=== PATIENT | female | born 1980 | race Two or more races ===

== ENCOUNTER 2025-03-17 09:31 | Emergency (ER) | payer BC ==
[~2025-03-17] VITALS: Ht 160 cm; Wt 90.7 kg
[2025-03-17] MEDS: MECLIZINE HCL 25 MG TABLET PO ONE (10:00)
[2025-03-17 10:07] LABS: PLATELET COUNT (AUTO) 238 K/uL (179-408); RED BLOOD CELL COUNT(AUTO) 4.57 MIL/uL (3.63-4.92); RED CELL DISTRIBUTION WIDTH 16.3 % (12.3-17.7); WHITE BLOOD COUNT (AUTO) 12.2 K/uL (3.8-11.8)
[2025-03-17] MEDS ORDERED: MECLIZINE HCL 25 MG TABLET ONE (10:17)
[2025-03-17 10:18] LABS: CREATININE 0.9 mg/dL (0.6-1.3); SODIUM SERUM 136 mmol/L (136-145); UREA NITROGEN, BLOOD 21 mg/dL (7-18)
[2025-03-17 10:23] LABS: ETHANOL < 3 MG/DL (0-10)
[2025-03-17 10:24] LABS: ASPARTATE AMINOTRANSFERASE 11 U/L (15-37); TOTAL PROTEIN, SERUM 5.9 g/dL (6.4-8.2)
[2025-03-17 11:02] LABS: BAND % (MANUAL) 2 % (0-10); EOSINOPHILS % (MANUAL) 1 % (0-8); LYMPHOCYTES % (MANUAL) 38 % (20-40); METAMYELOCYTES % 2 % (0-1); MONOCYTES % (MANUAL) 7 % (2-10); NEUTROPHILS % (MANUAL) 50 % (42-75)
[2025-03-17 11:03] LABS: PLATELET ESTIMATE ADEQUATE
[2025-03-17] MEDS: IV NORMAL SALINE 1000 ML BAG IV ONE (12:17)
[2025-03-17] MEDS: POTASSIUM CHLORIDE 20 MEQ TAB.PRT.SR PO ONE (12:22)
[2025-03-17 13:31] LABS: *BILIRUBIN,URIN NEGATIVE (NEGATIVE); *BLOOD, URINE NEGATIVE (NEGATIVE); *CLARITY,URINE CLOUDY (CLEAR); *COLOR,URINE YELLOW (YELLOW); *KETONES,URINE NEGATIVE (NEGATIVE); *PROTEIN,URINE NEGATIVE (NEGATIVE); *UROBILINOGEN,URINE 0.2 E.U./dl (NORMAL); LEUKOCYTE ESTERASE ,URINE NEGATIVE (NEGATIVE); NITRITE, URINE POSITIVE (NEGATIVE); UGLUCOSE NEGATIVE (NEGATIVE)
[2025-03-17 13:36] LABS: SQUAMOUS EPITHELIAL CELL,UR FEW /HPF (NONE SEEN); URINE AMORPHOUS URATE FEW /HPF
[2025-03-17 13:43] VITALS: BP 116/64; TEMP 97.6; O2SAT 99
[2025-03-17 13:44] LABS: *AMPHETAMINE, URINE NEGATIVE (NEGATIVE); *BARBITURATE, URINE NEGATIVE (NEGATIVE); *BENZODIAZEPINE, URINE NEGATIVE (NEGATIVE); *CANNABINOID, URINE POSITIVE (NEGATIVE); *COCCAINE, URINE NEGATIVE (NEGATIVE); *OPIATE, URINE NEGATIVE (NEGATIVE); *PHENCYCLIDINE SCREEN,URINE NEGATIVE (NEGATIVE); FENTANYL, URINE POSITIVE (NEGATIVE)
== END 2025-03-17 13:45 | disposition home or self-care (01) ==
LOC: ER 09:31
DX: R07.89 Other chest pain (principal); R51.9 Headache, unspecified; G51.0 Bell's palsy; E87.6 Hypokalemia; I10 Essential (primary) hypertension; M62.48 Contracture of muscle, other site; Z88.0 Allergy status to penicillin; Z88.1 Allergy status to other antibiotic agents; Z88.2 Allergy status to sulfonamides
CPT/HCPCS: 36415; 70030-TC; 83735; 84443; 84484; 85730; 87086; A4606; A4663; G0480; J7040; J8597